=== PATIENT | male | born 1975 | race Caucasian/White ===

== ENCOUNTER 2023-07-12 16:56 | Emergency (ER) | payer BC ==
[~2023-07-12] VITALS: Ht 177.8 cm; Wt 87.1 kg
[2023-07-12 16:59] VITALS: O2SAT 97
== END 2023-07-12 18:47 | disposition home or self-care (01) ==
LOC: ER 17:01
DX: S86.811A Strain of other muscle(s) and tendon(s) at lower leg level, right leg, initial encounter (principal); E78.5 Hyperlipidemia, unspecified; Z88.5 Allergy status to narcotic agent; Z88.1 Allergy status to other antibiotic agents; X58.XXXA Exposure to other specified factors, initial encounter; Y93.61 Activity, american tackle football; Y92.89 Other specified places as the place of occurrence of the external cause; Y99.8 Other external cause status
CPT/HCPCS: A4606; A4663